=== PATIENT | female | born 1950 | race Caucasian/White ===

== ENCOUNTER 2019-12-24 07:08 | Day surgery (SDC) | payer MEDICARE, BC ==
--- NOTE | 2019-12-24 06:55 | PCM.PREANE ---
Preanesthetic Assessment - Procedure Proposed Procedure: Left Cataract Extraction - Anesthesia/Transfusion/Family Hx Anesthesia History: Prior Anesthesia Without Reaction Family History of Anesthesia Reaction: No Transfusion History: No Prior Transfusion(s) Intubation History: Unknown - Review of Systems General: No Symptoms Pulmonary: No Symptoms (Smoker: 1/2ppd times 40 years.) Cardiovascular: No Symptoms, Dyspnea on Exertion Gastrointestinal: No Symptoms Neurological: No Symptoms Other: Reports: None - Physical Assessment NPO Status Date: 12/23/19 NPO Status Time: 21:00 Vital Signs: HR: B/P: Sat: Temp: Resp: Height: 1.7 m Weight: 57.153 kg ASA Class: 2 Mental Status: Alert & Oriented x3 Airway Class: Mallampati = 2 Dentition: Reports: Dentures (upper/lower) Thyro-Mental Finger Breadths: 3 Mouth Opening Finger Breadths: 3 Lungs: Clear to Auscultation, Normal Respiratory Effort, Decreased Breath Sounds Cardiovascular: Regular Rate, Regular Rhythm, No Murmurs - Allergies Allergies/Adverse Reactions: Allergies Allergy/AdvReac Type Severity Reaction Status Date / Time No Known Allergies Allergy Verified 12/23/19 16:18 - Anesthesia Plan Pre-Op Medication Ordered: None - Acknowledgements Anesthesia Type Planned: MAC Pt an Appropriate Candidate for the Planned Anesthesia: Yes Alternatives and Risks of Anesthesia Discussed w Pt/Guardian: Yes Pt/Guardian Understands and Agrees with Anesthesia Plan: Yes PreAnesthesia Questionnaire - HOME MEDS Home Medications: Home Meds . [No Known Home Meds] 12/23/19 [History] - CURRENT (IN HOUSE) MEDS Current Meds: Current Medications Brimonidine Tartrate (Alphagan 0.2% Ophth Soln) 0 ml EYELF ASDIRECTED SHREYAS Cefuroxime Sodium (Zinacef) 0 mg EYELF ASDIRECTED SHREYAS Lidocaine HCl (Xylocaine-Mpf 1%) 0 ml INJECT ASDIRECTED SHREYAS Phenylephrine HCl (Skip-Synephrine 2.5% Ophth Soln) 0 ml EYELF ASDIRECTED SHREYAS Pilocarpine HCl (Pilocar 4% Ophth Soln) 0 ml EYELF ASDIRECTED SHREYAS Polymyxin/Trimethoprim Sulfate (Polytrim Ophth Soln) 0 ml EYELF ASDIRECTED SHREYAS Tetracaine HCl (Tetracaine 0.5% Steri-Unit Yaz) 0 ml EYEBOTH ASDIRECTED SHREYAS Tropicamide (Mydriacyl 1% Ophth Soln) 0 ml EYELF ASDIRECTED SHREYAS
[~2019-12-24 07:08] MED LIST: Lidocaine 1% PF 2 ML SDV INJECT SCH
[2019-12-24] MEDS: Polymyxin B/Trimethoprim 10 ML Bottle EYELF SCH ×4 (07:20→08:47)
[2019-12-24] MEDS: Brimonidine 0.2% Ophth Soln 5 ML Bottle EYELF SCH ×4 (07:25→08:47)
[2019-12-24] MEDS: Phenylephrine 2.5% Ophth Soln 2 ML Bot EYELF SCH ×5 (07:30→08:26)
[2019-12-24] MEDS: Tropicamide 1% Ophth Soln 15 ML Bottle EYELF SCH ×4 (07:35→08:08)
[2019-12-24] MEDS: Tetracaine HCl/PF 0.5% 4 ML Bottle EYEBOTH SCH ×2 (08:14→08:38)
--- NOTE | 2019-12-24 08:31 | PCM48HPAN ---
Post Anesthesia Note - EVALUATION WITHIN 48HRS OF ANESTHETIC Vital Signs in Normal Range: Yes Patient Participated in Evaluation: Yes Respiratory Function Stable: Yes Airway Patent: Yes Cardiovascular Function Stable: Yes Hydration Status Stable: Yes Pain Control Satisfactory: Yes Nausea and Vomiting Control Satisfactory: Yes Mental Status Recovered: Yes Vital Signs: Last Vital Signs Temp 36.6 C 12/24/19 07:10 Pulse 77 12/24/19 07:10 Resp 16 12/24/19 07:10 BP 133/66 12/24/19 07:10 Pulse Ox 94 L 12/24/19 07:10
[2019-12-24] MEDS: Cefuroxime 10 MG/ML SYRINGE EYELF SCH ×2 (08:43→08:46)
[2019-12-24] MEDS: Pilocarpine 4% Ophth Soln 15 ML Bot EYELF SCH ×2 (08:44→08:47)
== END 2019-12-24 08:57 | disposition home or self-care (01) ==
LOC: JD.SDS 07:08
PROVIDERS: ATTEND Ophthalmology
DX: H25.813 Combined forms of age-related cataract, bilateral (principal); F17.210 Nicotine dependence, cigarettes, uncomplicated
CPT/HCPCS: 66984; J0697; J2001; C1780

== ENCOUNTER 2020-01-19 11:24 | Day surgery (SDC) | payer MEDICARE, BC ==
[~2020-01-19 11:24] MED LIST changes: +Cefuroxime 10 MG/ML SYRINGE EYERT SCH; +Pilocarpine 4% Ophth Soln 15 ML Bot EYERT SCH
[2020-01-19] MEDS: Polymyxin B/Trimethoprim 10 ML Bottle EYERT SCH ×3 (11:30→12:56)
[2020-01-19] MEDS: Brimonidine 0.2% Ophth Soln 5 ML Bottle EYERT SCH ×3 (11:35→12:56)
[2020-01-19] MEDS: Phenylephrine 2.5% Ophth Soln 2 ML Bot EYERT SCH ×5 (11:40→12:39)
[2020-01-19] MEDS: Tropicamide 1% Ophth Soln 15 ML Bottle EYERT SCH ×4 (11:45→12:25)
[2020-01-19] MEDS: Tetracaine HCl/PF 0.5% 4 ML Bottle EYEBOTH SCH ×4 (12:29→12:43)
--- NOTE | 2020-01-19 12:39 | PCM.PREANE ---
Preanesthetic Assessment - Procedure Proposed Procedure: Cataract Extraction with IOL - Anesthesia/Transfusion/Family Hx Anesthesia History: Prior Anesthesia Without Reaction Family History of Anesthesia Reaction: No Transfusion History: No Prior Transfusion(s) Intubation History: Unknown - Review of Systems General: No Symptoms Pulmonary: No Symptoms (Smoker 1/4 ppd. ), Cough (Occasional sometimes productive. ) Cardiovascular: No Symptoms Gastrointestinal: No Symptoms Neurological: No Symptoms (Seizure 30 years ago. No meidcations, never figured out why it happened. ) Other: Reports: None - Physical Assessment NPO Status Date: 01/19/20 NPO Status Time: 21:00 Vital Signs: Last Vital Signs Temp 37.2 C 01/19/20 11:25 Pulse 88 01/19/20 11:25 Resp 16 01/19/20 11:25 BP 128/71 01/19/20 11:25 Pulse Ox 95 01/19/20 11:25 Height: 1.7 m Weight: 55.338 kg ASA Class: 2 Mental Status: Alert & Oriented x3 Airway Class: Mallampati = 1 Dentition: Reports: Dentures Thyro-Mental Finger Breadths: 2 Mouth Opening Finger Breadths: 2 ROM/Head Extension: Full Lungs: Clear to Auscultation, Normal Respiratory Effort Cardiovascular: Regular Rate, Regular Rhythm - Allergies Allergies/Adverse Reactions: Allergies Allergy/AdvReac Type Severity Reaction Status Date / Time No Known Allergies Allergy Verified 01/18/20 13:41 - Acknowledgements Anesthesia Type Planned: MAC Pt an Appropriate Candidate for the Planned Anesthesia: Yes Alternatives and Risks of Anesthesia Discussed w Pt/Guardian: Yes Pt/Guardian Understands and Agrees with Anesthesia Plan: Yes PreAnesthesia Questionnaire - HOME MEDS Home Medications: Home Meds . [No Known Home Meds] 12/23/19 [History] - CURRENT (IN HOUSE) MEDS Current Meds: Current Medications Brimonidine Tartrate (Alphagan 0.2% Ophth Soln) 0 ml EYERT ASDIRECTED SHREYAS Stop: 01/19/20 18:00 Last Admin: 01/19/20 12:15 Dose: 1 drop Documented by: Cefuroxime Sodium (Zinacef) 0 mg EYERT ASDIRECTED SHREYAS Stop: 01/19/20 18:00 Lidocaine HCl (Xylocaine-Mpf 1%) 0 ml INJECT ASDIRECTED SHREYAS Stop: 01/19/20 18:00 Phenylephrine HCl (Skip-Synephrine 2.5% Ophth Soln) 0 ml EYERT ASDIRECTED SHREYAS Stop: 01/19/20 18:00 Last Admin: 01/19/20 12:20 Dose: 1 drop Documented by: Pilocarpine HCl (Pilocar 4% Ophth Soln) 0 ml EYERT ASDIRECTED SHREYAS Stop: 01/19/20 18:00 Polymyxin/Trimethoprim Sulfate (Polytrim Ophth Soln) 0 ml EYERT ASDIRECTED SHREYAS Stop: 01/19/20 18:00 Last Admin: 01/19/20 12:10 Dose: 1 drop Documented by: Tetracaine HCl (Tetracaine 0.5% Steri-Unit Yaz) 0 ml EYEBOTH ASDIRECTED SHREYAS Stop: 01/19/20 18:00 Last Admin: 01/19/20 12:34 Dose: 1 drop Documented by: Tropicamide (Mydriacyl 1% Ophth Soln) 0 ml EYERT ASDIRECTED SHREYAS Stop: 01/19/20 18:00 Last Admin: 01/19/20 12:25 Dose: 1 drop Documented by:
--- NOTE | 2020-01-19 12:58 | PCM48HPAN ---
Post Anesthesia Note - EVALUATION WITHIN 48HRS OF ANESTHETIC Vital Signs in Normal Range: Yes Patient Participated in Evaluation: Yes Respiratory Function Stable: Yes Airway Patent: Yes Cardiovascular Function Stable: Yes Hydration Status Stable: Yes Pain Control Satisfactory: Yes Nausea and Vomiting Control Satisfactory: Yes Mental Status Recovered: Yes Vital Signs: Last Vital Signs Temp 98.9 F 01/19/20 11:25 Pulse 88 01/19/20 11:25 Resp 16 01/19/20 11:25 BP 128/71 01/19/20 11:25 Pulse Ox 95 01/19/20 11:25 125/78, HR 76 , RR 20, SpO2 96%
== END 2020-01-19 13:12 | disposition home or self-care (01) ==
LOC: JD.SDS 11:24
PROVIDERS: ATTEND Ophthalmology
DX: H25.811 Combined forms of age-related cataract, right eye (principal); H52.31 Anisometropia; H52.223 Regular astigmatism, bilateral; H16.103 Unspecified superficial keratitis, bilateral; H16.223 Keratoconjunctivitis sicca, not specified as Sjogren's, bilateral; H02.834 Dermatochalasis of left upper eyelid; H02.831 Dermatochalasis of right upper eyelid; F17.210 Nicotine dependence, cigarettes, uncomplicated; Z96.1 Presence of intraocular lens
CPT/HCPCS: 66984; J0697; J2001; 00142; C1780

== ENCOUNTER 2022-12-22 09:44 | Emergency (ER) | payer MEDICARE, BC ==
[2022-12-22] MEDS ORDERED: Sodium Chloride 0.9% 10 ML Syringe FLUSH PRN (10:34)
[2022-12-22] MEDS ORDERED: Ondansetron 4 MG/2 ML SDV IVPUSH ONE (10:34)
[2022-12-22] MEDS ORDERED: HYDROmorphone 0.5 MG/0.5 ML Syringe IVPUSH ONE ×2 (10:35→13:18)
[2022-12-22] MEDS ORDERED: Iopamidol 612 MG/ML 100 ML Bottle IVPUSH ONE (10:44)
[2022-12-22] MEDS ORDERED: Sodium Chloride 0.9% 1,000 ML IV SCH (10:45)
[2022-12-22 10:48] LABS: BASOPHILS ABSOLUTE AUTO 0.02 K/mm3 (0.01-0.08); BASOPHILS PERCENT AUTO 0.2 % (0.1-1.2); EOSINOPHILS PERCENT AUTO 0 (0.7-5.8); HEMATOCRIT 45.7 % (34.1-44.9); IMMATURE GRAN ABSOLUTE AUTO 0.02 K/mm3 (0.00-0.10); IMMATURE GRAN PERCENT AUTO 0.2 % (<=1.0); LYMPHOCYTES ABSOLUTE AUTO 0.82 K/mm3 (1.18-3.74); LYMPHOCYTES PERCENT AUTO 7.4 % (19.3-51.7); MEAN CORPUSCULAR HEMOGLOBIN 30.3 pg (25.6-32.2); MEAN CORPUSCULAR HGB CONC 32.8 g/dl (32.2-35.5); MEAN CORPUSCULAR VOLUME 92.3 fl (79.4-94.8); MEAN PLATELET VOLUME 10.4 fl (9.4-12.3); MONOCYTES ABSOLUTE AUTO 1.04 K/mm3 (0.24-0.36); MONOCYTES PERCENT AUTO 9.4 % (4.7-12.5); NEUTROPHILS ABSOLUTE AUTO 9.18 K/mm3 (1.56-6.13); NEUTROPHILS PERCENT AUTO 82.8 % (34.0-71.1); PLATELET COUNT,PLT 240 K/mm3 (182-369); RED BLOOD CELL COUNT 4.95 M/mm3 (3.98-5.22); WHITE BLOOD CELL COUNT,WBC 11.08 K/mm3 (3.98-10.04)
[2022-12-22 11:08] LABS: A/G RATIO 1.1 (1-2); ALBUMIN 4.2 g/dl (3.4-5.0); ANION GAP 12.6 (5-15); BILIRUBIN TOTAL 1.3 mg/dL (0.2-1.0); BUN/CREATININE RATIO 26.3 (14-18); CALCIUM 9.4 mg/dL (8.5-10.1); CREATININE 0.8 mg/dL (0.55-1.02); EST CRCL DRUG DOSING (CG) 55.93 mL/min; POTASSIUM,K 3.6 mEq/L (3.5-5.1); PROTEIN TOTAL,TP 7.9 g/dl (6.4-8.2)
[2022-12-22] MEDS: Sodium Chloride 0.9% 10 ML Syringe FLUSH ONE ×2 (11:09→13:15)
[2022-12-22] MEDS ORDERED: Ketorolac 15 MG/ML SDV IVPUSH ONE (13:18)
[2022-12-22] MEDS ORDERED: Acetaminophen/HYDROcodone 325-5 MG Tab PO ONE (13:52)
== END 2022-12-22 14:20 | disposition home or self-care (01) ==
LOC: JD.ED 09:44
DX: N13.2 Hydronephrosis with renal and ureteral calculous obstruction (principal); E27.8 Other specified disorders of adrenal gland; K82.8 Other specified diseases of gallbladder; F17.210 Nicotine dependence, cigarettes, uncomplicated
CPT/HCPCS: 36415; 74177; 80053; 83690; 85025; 96361; 96374; 96375; 99284; A9270; J1170; J1885; J2405; J3490; J7030; Q9967